=== PATIENT | female | born 2000 | race Hispanic/Latino ===

== ENCOUNTER 2019-07-12 20:44 | Emergency (ER) | payer OTHER, SELFPAY ==
[2019-07-12 20:52] VITALS: BP 126/73; PULSE 83; RESP 16; TEMP 36.7; O2SAT 99; BMI 26.6
--- NOTE | 2019-07-12 22:06 | ED.GENADULT ---
HPI - General Adult General Chief complaint: Urogenital-Female Stated complaint: thinks she has a UTI Time Seen by Provider: 07/12/19 22:04 Source: patient Mode of arrival: Ambulatory Limitations: no limitations History of Present Illness HPI narrative: 18-year-old otherwise healthy female here for evaluation of dysuria, frequency, urgency and burning when she urinates. Symptoms have been going on for the past 24-36 hours. She has had a urinary tract infection the past. States this feels like urinary tract infection. No back pain. No fevers. No nausea. Cannot remember what antibiotic she had the last time. Related Data Previous Rx's Medication Instructions Recorded nitrofurantoin monohyd/m-cryst 100 mg PO BID 5 Days #9 cap 07/12/19 [Macrobid] phenazopyridine [Pyridium] 100 mg PO TID PRN #6 tab 07/12/19 Allergies Allergy/AdvReac Type Severity Reaction Status Date / Time No Known Drug Allergies Allergy Verified 07/12/19 20:58 Review of Systems Constitutional Constitutional: Denies fever(s) Cardiovascular Cardiovascular: Denies chest pain and Denies dyspnea Respiratory Respiratory: Denies dyspnea Gastrointestinal Gastrointestinal: Denies abdominal pain and Denies nausea Genitourinary Genitourinary: Reports urinary frequency, Reports dysuria, Denies pelvic pain, Denies flank pain, Reports urinary hesitancy, Reports urinary urgency and Denies vaginal discharge Musculoskeletal Musculoskeletal: Denies arthralgias Integumentary/Breasts Skin/Breast: Denies lesions and Denies rash Neurologic Neurologic: Denies behavioral changes Psychiatric Psychiatric: Denies behavioral changes Hematologic/Lymphatic Hematologic/Lymphatic: Denies easy bleeding and Denies easy bruising Patient History Medical History Healthy adult (Acute) Social History Smoking Status: Never smoker Smoking Status: Never smoker Substance Use Type: does not use Exam Initial Vital Signs Initial Vital Signs: Vital Signs Temperature 98.0 F 07/12/19 20:52 Pulse Rate 83 07/12/19 20:52 Respiratory Rate 16 07/12/19 20:52 Blood Pressure 126/73 07/12/19 20:52 Pulse Oximetry 99 07/12/19 20:52 Const General: cooperative and comfortable Limitations: mental status not altered Resp Effort & Inspection: normal respiratory effort Cardio Rate: regular rate Skin Lesions: no lesions Rashes: no rashes Neuro General: alert and awake Cognition: normal cognition Speech: speech normal Extrem General: normal to inspection Psych Appearance: grossly normal and well kempt Course Orders Ordered: ED Orders 07/12/19 21:00 Urine Culture Stat Urine Microscopic Stat Discontinued Medications Nitrofurantoin Macrocrystals (Macrobid 100 Mg Capsule) 100 mg PO NOW ONE Stop: 07/12/19 22:13 Last Admin: 07/12/19 22:18 Dose: 100 mg Documented by: GISEL Phenazopyridine HCl (Pyridium) 100 mg PO NOW ONE Stop: 07/12/19 22:13 Last Admin: 07/12/19 22:18 Dose: 100 mg Documented by: GISEL Vital Signs Vital signs: Vital Signs - 8 hr 07/12/19 20:52 07/12/19 22:27 Temperature 98.0 F Pulse Rate 83 76 Respiratory Rate 16 18 Blood Pressure 126/73 118/71 Pulse Oximetry 99 99 Medical Decision Making Lab Data Lab results reviewed: Yes I reviewed the patient's lab results. Labs: Lab Results 07/12/19 Range/Units 21:00 Urine RBC 5-10/hpf H (0-5/HPF) Urine WBC >100/hpf H (0-5/HPF) Urine Bacteria Few (2-10) H (None) Ur Culture Indicated? Specimen cultured Point of Care Testing Test Results Negative Urine Dip Bedside Urine Glucose Negative Bedside Urine Bilirubin - Negative Bedside Urine Ketone - Negative Urine Specific [place] 1.030 Bedside Urine Occult Blood +++ Bedside Urine pH 6.0 Bedside Urine Protein + 30 Bedside Urine Urobilinogen - Negative Bedside Urine Nitrite - Negative Bedside Urine Leukocytes +++ 500 Esterase Point of care testing: Point of Care Testing Test Results Negative Urine Dip Bedside Urine Glucose Negative Bedside Urine Bilirubin - Negative Bedside Urine Ketone - Negative Urine Specific [place] 1.030 Bedside Urine Occult Blood +++ Bedside Urine pH 6.0 Bedside Urine Protein + 30 Bedside Urine Urobilinogen - Negative Bedside Urine Nitrite - Negative Bedside Urine Leukocytes +++ 500 Esterase MDM Narrative Medical decision making narrative: Patient history and physical exam is consistent with urinary tract infection. Urinalysis also consistent with this. No signs of pyelonephritis. Treat with antibiotics. Urine culture was pending. We will call the need to change antibiotics. She was given return precautions and follow-up instructions. She expressed understanding and agreement plan. Discharge Plan Departure Patient Disposition: Home Clinical Impression: Urinary tract infection Qualifiers: Urinary tract infection type: acute cystitis Hematuria presence: with hematuria Qualified Code(s): N30.01 - Acute cystitis with hematuria Discharge Date/Time: 07/12/19 22:27 Instructions: DI for Urinary Tract Infection (UTI) Activity Restrictions/Additional Instructions: Take the antibiotics and the peridium as directed. A urine culture was pending at the time of your discharge. We will call you if we need to change any medications. Contact your primary provider for follow-up. Return to the emergency department for any new or worsening symptoms Prescriptions: New phenazopyridine [Pyridium] 100 mg tablet 100 mg PO TID PRN (Reason: pain) Qty: 6 RF: 0 nitrofurantoin monohyd/m-cryst [Macrobid] 100 mg capsule 100 mg PO BID 5 Days Qty: 9 RF: 0
[2019-07-12 22:15] LABS: Bacteria Urine Few (2-10); Culture Indicated Urine Specimen Cultured; RBC Urine 5-10/HPF (0-5/HPF); WBC Urine >100/HPF (0-5/HPF)
[2019-07-12] MEDS: NITROFURANTOIN ER 100 MG CAPSULE PO (22:18)
[2019-07-12] MEDS: PHENAZOPYRIDINE 100 MG TABLET PO (22:18)
[2019-07-12 22:27] VITALS: BP 118/71; PULSE 76; RESP 18; O2SAT 99
== END 2019-07-12 22:27 | disposition home or self-care (01) ==
PROVIDERS: Emergency Provider Emergency Medicine
DX: N30.01 Acute cystitis with hematuria (principal)
CPT/HCPCS: 81003; 81015; 81025; 87077; 87086; 87147; 99283